=== PATIENT | female | born 1960 | race Native Hawaiian/Other Pacific Islander ===

== ENCOUNTER 2016-09-28 07:28 | Outpatient (CLI) | payer OTHER ==
[~2016-09-28] VITALS: Ht 30.5 cm; Wt 0.5 kg
== END 2016-09-28 19:58 | disposition home or self-care (01) ==
LOC: NM 07:28
DX: R94.31 Abnormal electrocardiogram [ECG] [EKG] (principal)
CPT/HCPCS: A9500; J2785